=== PATIENT | female | born 1930 | race Caucasian/White ===

== ENCOUNTER → 2016-12-27 | Outpatient (CLI) | payer MEDICARE, OTHER | END | disposition home or self-care (01) | LOC: GMA 15:04 | PROVIDERS: ATTEND Nurse Practitioner Acute Care | DX: R30.0 Dysuria (principal) ==

== ENCOUNTER 2017-02-24 13:53 | Emergency (ER) | payer MEDICARE, OTHER ==
[2017-02-24 14:13] VITALS: TEMP 97.5
--- NOTE | 2017-02-24 14:56 | ED.PDOC ---
History of Present Illness - General Chief Complaint: Headache Stated Complaint: headache Time Seen by Provider: 02/24/17 14:43 Source: patient, RN notes reviewed, Vital Signs reviewed, family - Daughters Exam Limitations: no limitations - History of Present Illness Initial Comments: Patient is an 86 y/o female who is brought in by her daughters due to a headache that started yesterday. It is a moderate headache, although her daughters state she said it felt like her head was going to blow up. She has a lot of sinus congestion and her upper teeth hurt. She denies any fever or chills. She threw up her lunch today. Timing/Duration: 24 hours, constant Quality: moderate, pressure, sharp Head Injury Location: frontal Recent Head Trauma: no recent headache/trauma Improving Factors: nothing Worsening Factors: nothing Associated Symptoms: fatigue, nausea/vomiting, nasal congestion, nasal drainage Allergies/Adverse Reactions: Allergies Cephalexin [From Keflex] Allergy (Severe, Verified 02/24/17 14:13) Vomitting Levofloxacin [From Levaquin] Allergy (Severe, Verified 02/24/17 14:13) Vomitting Statins Allergy (Verified 02/24/17 14:13) coa inhibitors Adverse Reaction (Mild, Uncoded 02/24/17 14:13) Rash Home Medications: Ambulatory Orders Temazepam [Restoril] 30 mg PO HS 12/11/13 Aspirin [Baby Aspirin] 162 mg PO QD 09/17/14 Carvedilol [Coreg] 3.125 mg PO BID 11/16/14 Isosorbide Mononitrate [Imdur] 60 mg PO DAILY 11/16/14 Pantoprazole Sodium [Protonix] 40 mg PO DAILY 11/16/14 Simvastatin [Zocor] 20 mg PO DAILY 11/16/14 Ondansetron [Zofran Odt] 4 mg PO Q6H PRN #10 tab 08/17/15 Azilsartan Medoxomil-Chlorthal [Edarbyclor] 1 tab PO DAILY 03/03/16 ALPRAZolam [Xanax] 0.25 mg PO BID PRN 06/10/16 Hyoscyamine Sulfate [Levsin] 0.125 mg PO Q6HRS #20 tab 10/24/16 Sulfa/Trimeth 800/160 (Ds) Tab [Bactrim DS Tab] 1 ea PO BID #20 tab 02/24/17 Review of Systems - Review of Systems Constitutional: Denies: chills, fever EENTM: States: nose congestion Respiratory: States: no symptoms reported Cardiology: States: no symptoms reported Gastrointestinal/Abdominal: States: nausea, vomiting Genitourinary: States: no symptoms reported Musculoskeletal: States: no symptoms reported Skin: States: no symptoms reported Neurological: States: depressed, headache Endocrine: States: no symptoms reported Hematologic/Lymphatic: States: no symptoms reported All other Systems: Reviewed and Negative Past Medical History (General) - Patient Medical History Hx Seizures: No Hx Stroke: No Hx Dementia: No Hx Asthma: No Hx of COPD: No Hx Cardiac Disorders: Yes Hx Congestive Heart Failure: No Hx Pacemaker: No Hx Hypertension: Yes Hx Thyroid Disease: No Hx Diabetes: No Hx Gastroesophageal Reflux: No Hx Renal Disease: No Hx Cancer: Yes - colon Hx of HIV: No Hx Hepatitis C: No Hx MRSA: No - Vaccination History Hx Tetanus, Diphtheria Vaccination: No Hx Influenza Vaccination: Yes Hx Pneumococcal Vaccination: Yes - Social History Hx Tobacco Use: No Hx Chewing Tobacco Use: No Hx Alcohol Use: No Hx Substance Use: No Hx Substance Use Treatment: No Hx Depression: No Hx Physical Abuse: No Hx Emotional Abuse: No Hx Suspected Abuse: No - Activities of Daily Living Hospice Agency (if applicable):: None - Female History Patient is a Female of Child Bearing Age (10 -59 yrs old): No Patient : No Family Medical History - Family History Mother Family History: Unknown Living Status: Age at (years of age): 87 Cause of : pancreatic CA Hx Family Cancer: Yes - pancreas,and colon Physical Exam - Physical Exam General Appearance: Alert, No apparent distress Eyes, Ears, Nose, Throat Exam: PERRL/EOMI, normal ENT inspection, TMs normal, pharynx normal Neck: non-tender, full range of motion, supple, normal inspection Cardiovascular/Chest: regular rate, rhythm, no edema, no gallop, no murmur Respiratory: lungs clear, normal breath sounds, no respiratory distress, no accessory muscle use Gastrointestinal/Abdominal: normal bowel sounds, non tender, soft, no organomegaly Mental Status: alert, oriented x 3 [employer] parts Exam: normal speech, PERRL, hearing deficit (R), hearing deficit (L) Coordination/Gait: negative Romberg's sign Skin Exam: warm/dry, normal color Progress - Results/Orders Results/Orders: 02/24/17 14:05 Temperature 97.5 F L Pulse Rate [ 66 pulse ox] Respiratory 20 Rate Blood Pressure 143/67 [Left Arm] O2 Sat by Pulse 98 Oximetry - EKG/XRAY/CT CT: head & sinuses: normal brain for age, chronic maxillary sinusitis CT Ordered: Yes Departure - Departure Clinical Impression: Sinusitis Qualifiers: Sinusitis location: maxillary Chronicity: unspecified Qualifier Code: (J32.0) Chronic maxillary sinusitis Headache Qualifiers: Headache type: unspecified Headache chronicity pattern: acute headache Intractability: not intractable Qualifier Code: (R51) Headache Time of Disposition: 16:04 Disposition: Discharge to Home or Self Care Departure Forms: ED Discharge - Pt. Copy, Patient Portal Self Enrollment Diet: resume usual diet Prescriptions: Sulfa/Trimeth 800/160 (Ds) Tab [Bactrim DS Tab] 1 ea PO BID #20 tab Home Medications: Ambulatory Orders Temazepam [Restoril] 30 mg PO HS 12/11/13 Aspirin [Baby Aspirin] 162 mg PO QD 09/17/14 Carvedilol [Coreg] 3.125 mg PO BID 11/16/14 Isosorbide Mononitrate [Imdur] 60 mg PO DAILY 11/16/14 Pantoprazole Sodium [Protonix] 40 mg PO DAILY 11/16/14 Simvastatin [Zocor] 20 mg PO DAILY 11/16/14 Ondansetron [Zofran Odt] 4 mg PO Q6H PRN #10 tab 08/17/15 Azilsartan Medoxomil-Chlorthal [Edarbyclor] 1 tab PO DAILY 03/03/16 ALPRAZolam [Xanax] 0.25 mg PO BID PRN 06/10/16 Hyoscyamine Sulfate [Levsin] 0.125 mg PO Q6HRS #20 tab 10/24/16 Sulfa/Trimeth 800/160 (Ds) Tab [Bactrim DS Tab] 1 ea PO BID #20 tab 02/24/17 Additional Instructions: Over the counter: Flonase or Nasacort: Two sprays each nostril daily. NetiPot: Use twice daily. Tylenol for pain.
--- NOTE | 2017-02-24 15:27 | CT ---
PROCEDURE: Head HISTORY: New onset headache, sinus congestion Indication: Same as above Comparison: 06/10/2016 Technique: CT of the head was done without intravenous contrast was done in the orthogonal planes. This exam was performed according to our departmental dose-optimization program, which includes automated exposure control, adjustment of the mA and/or KV according to the patient's size and/or use of iterative reconstruction technique. FINDINGS: There is no intracranial hemorrhage, midline shift mass effect or acute focal infarct. There is prominence of the sylvian fissures and the cortical sulci reflecting age related volume loss. There is periventricular and deep white matter low attenuation, most likely related to small vessel white matter ischemic disease. Intracranial vascular calcifications are seen. If clinical concern exists regarding an acute ischemic/vascular pathology being responsible for patient's symptomatology, an MRI of the brain is more sensitive than the current study, in ruling out such a possibility. There is good muñoz/white matter differentiation. The ventricular system is normal. The mastoid air cells are unremarkable . The paranasal sinuses show changes of minimal right maxillary chronic sinusitis . There is no visualization of acute fractures involving the calvarium or the skull base. IMPRESSION: There is no acute intracranial abnormality. Age related and chronic involutional changes are seen. Electronically signed by: Herb Mckeon MD 02/24/2017 3:27 PM CDT
--- NOTE | 2017-02-24 15:31 | CT ---
PROCEDURE: Sinuses CLINICAL HISTORY: New onset headache, sinus congestion INDICATION: Same as above Comparison: CT of the head done on the same day . TECHNIQUE: CT of the paranasal sinuses was done without intravenous contrast, followed by orthogonal reconstructions. This exam was performed according to our departmental dose-optimization program, which includes automated exposure control, adjustment of the mA and/or KV according to the patient's size and/or use of iterative reconstruction technique. FINDINGS: There is presence of small retention cysts in the bilateral maxillary sinuses No air-fluid levels are seen in the maxillary sinuses. The ostiomeatal complexes are widely patent . The ethmoidal air cells are unremarkable . The frontal sinus is unremarkable . The sphenoid sinus is unremarkable . The bony nasal septum is is not significantly deviated . The bilateral sphenoethmoidal recesses are widely patent. There is no significant turbinate hypertrophy. There is no visualization of any nasopharyngeal mass. The visualized mastoid air cells are unremarkable . There are no soft tissue facial abscesses. There is presence of a 5 mm sebaceous cyst in the left anterior subcutaneous fat at the level of the left maxillary sinus. The visualized portions of the brain are unremarkable. The remaining soft tissues, bilateral orbital and visualized osseous structures are unremarkable IMPRESSION: There is presence of small retention cysts in the bilateral maxillary sinuses, suggestive of underlying changes of minimal chronic sinusitis . There is presence of a 5 mm sebaceous cyst in the left anterior subcutaneous fat at the level of the left maxillary sinus. Electronically signed by: Herb Mckeon MD 02/24/2017 3:30 PM CDT
[2017-02-24 16:51] VITALS: BP 142/64; O2SAT 96
== END 2017-02-24 16:10 | disposition home or self-care (01) ==
LOC: ER 13:53
DX: J32.0 Chronic maxillary sinusitis (principal); R51 Headache; I10 Essential (primary) hypertension; Z85.038 Personal history of other malignant neoplasm of large intestine; Z79.82 Long term (current) use of aspirin; Z79.899 Other long term (current) drug therapy; Z88.3 Allergy status to other anti-infective agents; Z88.8 Allergy status to other drugs, medicaments and biological substances

== ENCOUNTER → 2017-04-05 | Outpatient (CLI) | payer MEDICARE, OTHER | LOC: GMAB 11:15 | PROVIDERS: ATTEND Family Medicine | DX: I10 Essential (primary) hypertension (principal) ==

== ENCOUNTER → 2017-05-17 | Outpatient (CLI) | payer MEDICARE, OTHER ==
--- NOTE | 2017-05-17 10:46 | US ---
EXAM DESCRIPTION: Renal CLINICAL HISTORY: 87 years Female, RENAL CYST COMPARISON: CT examination 10/24/2016. FINDINGS: The right kidney is moderately atrophic at 7.7 x 4.4 x 4.2 cm. A 2.2 cm upper pole simple renal cyst is present with good through transmission and no significant solid component or hydronephrosis noted. Review of the CT examination showed slight septation or thickening of the cyst wall inferolaterally which is not appreciated on the current sonographic examination. For this reason continued follow-up with repeat imaging of the slightly smaller cyst is recommended in an additional six months. The left kidney is slightly larger at 8.1 x 4.5 x 4.6 cm. No cyst or mass or obstruction is noted. No hydronephrosis is seen. IMPRESSION: 1. Persistent 2.2 cm right renal cyst posteriorly involving the upper pole that is slightly smaller in size than previously seen. Because of slight thickening of the cyst wall inferior laterally on prior CT continued sonographic follow-up for longer term stability with repeat imaging in additional six months is recommended 2. Modestly atrophic right kidney and normal-appearing left kidney. Electronically signed by: Nish Whiting MD 05/17/2017 10:46 AM CDT
== END | disposition home or self-care (01) ==
LOC: US 08:28
PROVIDERS: ATTEND Urology
DX: N28.1 Cyst of kidney, acquired (principal)

== ENCOUNTER 2017-05-18 11:00 | Emergency (ER) | payer MEDICARE, OTHER ==
[2017-05-18] MEDS: SODIUM CHLORIDE 0.9% (FLUSH) 10 ML SYG IV PRN (11:15)
--- NOTE | 2017-05-18 12:05 | ED.PDOC ---
History of Present Illness - General Chief Complaint: Chest Pain/SC Stated Complaint: CHEST PAIN Time Seen by Provider: 05/18/17 11:55 Source: patient Exam Limitations: no limitations - History of Present Illness Initial Comments: PT IS AN 87 YO FEMALE WHO REPORTS ONSET OF CHEST PAIN LAST NIGHT AT 930. PT TOOK 2 SL NTG WHICH DID NOT ALLEVIATE PAIN IT USUALLY DOES. PT REPORTS THAT PAIN RESOLVED AT ABOUT 3 AM LAST NIGHT. PT CALLED HER [facility]LE PRINTER TO MAKE AN APPT THIS AM AND WAS INSTRUCTED TO COME TO THE ED TO BE EVALUATED. PT DENIES PAIN CURRENTLY. PT REPORTS THAT HER PCP, DR. SANCHEZ INCREASED HER NORVASC FROM 5MG TO 10MG YESTERDAY. PT REPORT THAT SHE ONLY TOOK 5MG THIS AM BECAUSE SHE BELIEVES THAT THIS MAY HAVE CONTRIBUTED TO THE CHEST PAIN. Timing/Duration: resolved prior to arrival, gone now Severity/Quality: moderate Location: substernal Chest Pain Radiation: no radiation Activities at Onset: none Prior Chest Pain/Cardiac Workup: heart attack, other - CABG Improving Factors: nothing Nitro Today/Relief: 0.4 mg x 2 - LAST NIGHT Aspirin Treatment Today: provided at home Associated Symptoms: denies symptoms Allergies/Adverse Reactions: Allergies Cephalexin [From Keflex] Allergy (Severe, Verified 02/24/17 14:13) Vomitting Levofloxacin [From Levaquin] Allergy (Severe, Verified 02/24/17 14:13) Vomitting Statins Allergy (Verified 02/24/17 14:13) coa inhibitors Adverse Reaction (Mild, Uncoded 02/24/17 14:13) Rash Home Medications: Ambulatory Orders Temazepam [Restoril] 30 mg PO HS 12/11/13 Aspirin [Baby Aspirin] 162 mg PO QD 09/17/14 Carvedilol [Coreg] 3.125 mg PO BID 11/16/14 Isosorbide Mononitrate [Imdur] 60 mg PO DAILY 11/16/14 Pantoprazole Tablet [Protonix] 40 mg PO DAILY 11/16/14 Simvastatin [Zocor] 20 mg PO DAILY 11/16/14 Ondansetron [Zofran Odt] 4 mg PO Q6H PRN #10 tab 08/17/15 Azilsartan Medoxomil-Chlorthal [Edarbyclor] 1 tab PO DAILY 03/03/16 ALPRAZolam [Xanax] 0.25 mg PO BID PRN 06/10/16 Hyoscyamine Sulfate [Levsin] 0.125 mg PO Q6HRS #20 tab 10/24/16 Sulfa/Trimeth 800/160 (Ds) Tab [Bactrim DS Tab] 1 ea PO BID #20 tab 02/24/17 Review of Systems - Review of Systems Constitutional: Denies: chills, fever EENTM: Denies: nose congestion, throat pain Respiratory: Denies: cough, short of breath Cardiology: States: see HPI, chest pain. 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 Hx Congestive Heart Failure: No Hx Pacemaker: No Hx Hypertension: Yes Hx Thyroid Disease: No Hx Diabetes: No Hx Gastroesophageal Reflux: No Hx Renal Disease: No Hx Cancer: Yes - colon Hx of HIV: No Hx Hepatitis C: No Hx MRSA: No - Vaccination History Hx Tetanus, Diphtheria Vaccination: No Hx Influenza Vaccination: Yes Hx Pneumococcal Vaccination: Yes - Social History Hx Tobacco Use: No Hx Chewing Tobacco Use: No Hx Alcohol Use: No Hx Substance Use: No Hx Substance Use Treatment: No Hx Depression: No Hx Physical Abuse: No Hx Emotional Abuse: No Hx Suspected Abuse: No - Female History Patient : No Family Medical History - Family History Mother Family History: Unknown Living Status: Age at (years of age): 87 Cause of : pancreatic CA Hx Family Cancer: Yes - pancreas,and colon Physical Exam - Physical Exam General Appearance: Alert, Comfortable, No apparent distress, Well Groomed, Well Hydrated, Well Nourished Eyes, Ears, Nose, Throat Exam: normal ENT inspection Neck: full range of motion, normal inspection Respiratory: lungs clear, normal breath sounds, no respiratory distress Cardiovascular/Chest: regular rate, rhythm, no edema, no murmur Gastrointestinal/Abdominal: non tender, soft Extremity: non-tender, normal inspection Neurologic: alert, normal mood/affect, oriented x 3 Skin Exam: normal color, warm/dry Progress - Progress Progress: 05/18/17 13:51 PT CONTINUES TO REST COMFORTABLY, NO CHEST PAIN REPORTED. LABS AND DIAGNOSTIC STUDIES DISCUSSED. WILL PLAN TO DC HOME AND RECOMMEND FOLLOW UP WITH [facility] [employer] AND PCP. - Results/Orders Results/Orders: 05/18/17 11:59 IV Care:Saline Lock per Protoc QSHIFT Telemetry .ONCE Sodium Chloride 0.9% (Flush) [Saline Flush Syringe] 10 ml IV PRN PRN EKG Assessment ONCE EKG Stat Pulse Ox Stat Pulse Oximetry Assessment DAILY Laboratory Results - last 24 hr 05/18/17 11:59 WBC 6.0 RBC 4.23 Hgb 13.2 Hct 39.2 MCV 92.5 MCH 31.3 H MCHC 33.8 RDW 12.9 Plt Count 200 MPV 9.6 Absolute Neuts (auto) 3.90 Absolute Lymphs (auto) 1.50 Absolute Monos (auto) 0.40 Absolute Eos (auto) 0.10 Absolute Basos (auto) 0.10 Neutrophils % 65.5 Lymphocytes % 24.4 Monocytes % 7.0 Eosinophils % 2.2 Basophils % 0.9 PT 10.9 INR 0.960 PTT (SP) 25.9 Sodium 133 L Potassium 3.9 Chloride 97 L Carbon Dioxide 25 Anion Gap 14.9 BUN 19 H Creatinine 0.93 BUN/Creatinine Ratio 20.4 H Random Glucose 111 H Serum Osmolality 269.3 L Calcium 9.5 Magnesium 1.5 L Creatine Kinase 67 CK-MB (CK-2) 2.6 CK-MB (CK-2) % Not Reportable Troponin I < 0.02 B-Natriuretic Peptide 184.0 H - EKG/XRAY/CT EKG: Sinus - @75BPM, NL INTERVALS, NL AXIS, no ST T wave changes - WHEN COMPARED TO PREVIOUS FROM 09/18/16 XRAY: chest - NORMAL PER RAD Departure - Departure Clinical Impression: Chest pain of unknown etiology Time of Disposition: 13:52 Disposition: Discharge to Home or Self Care Condition: Good Departure Forms: ED Discharge - Pt. Copy, Patient Portal Self Enrollment Referrals: Russell Sanchez MD [Primary Care Provider] - 1-2 Weeks Home Medications: Ambulatory Orders Temazepam [Restoril] 30 mg PO HS 12/11/13 Aspirin [Baby Aspirin] 162 mg PO QD 09/17/14 Carvedilol [Coreg] 3.125 mg PO BID 11/16/14 Isosorbide Mononitrate [Imdur] 60 mg PO DAILY 11/16/14 Pantoprazole Tablet [Protonix] 40 mg PO DAILY 11/16/14 Simvastatin [Zocor] 20 mg PO DAILY 11/16/14 Ondansetron [Zofran Odt] 4 mg PO Q6H PRN #10 tab 08/17/15 Azilsartan Medoxomil-Chlorthal [Edarbyclor] 1 tab PO DAILY 03/03/16 ALPRAZolam [Xanax] 0.25 mg PO BID PRN 06/10/16 Hyoscyamine Sulfate [Levsin] 0.125 mg PO Q6HRS #20 tab 10/24/16 Sulfa/Trimeth 800/160 (Ds) Tab [Bactrim DS Tab] 1 ea PO BID #20 tab 02/24/17
[2017-05-18] MEDS: ASPIRIN TABLET 325 MG TAB PO ONE (12:41)
--- NOTE | 2017-05-18 12:43 | RAD ---
EXAM DESCRIPTION: Chest,1 View CLINICAL HISTORY: CHEST PAIN COMPARISON: September 18, 2016 IMPRESSION: Single AP portable upright view of the chest shows cardiac silhouette and pulmonary vasculature to be within normal limits. Sternotomy wires are noted. Mild calcifications of the thoracic aortic arch are seen. Lungs are normally aerated and clear. No obvious pleural effusion or pneumothorax is seen. Incidentally noted are several osseous bodies in the region of the right shoulder. Electronically signed by: Sreekanth Leon MD 05/18/2017 12:42 PM CDT
[2017-05-18 16:45] VITALS: BP 148/85; TEMP 97.9; O2SAT 95
== END 2017-05-18 14:05 | disposition home or self-care (01) ==
LOC: ER 11:00
DX: R07.9 Chest pain, unspecified (principal); I25.2 Old myocardial infarction; I10 Essential (primary) hypertension; Z85.89 Personal history of malignant neoplasm of other organs and systems; Z95.1 Presence of aortocoronary bypass graft; Z79.82 Long term (current) use of aspirin; Z79.899 Other long term (current) drug therapy; Z88.8 Allergy status to other drugs, medicaments and biological substances; Z88.3 Allergy status to other anti-infective agents

== ENCOUNTER → 2017-07-21 | Outpatient (CLI) | payer MEDICARE, OTHER | END | disposition home or self-care (01) | LOC: GMA 15:28 | PROVIDERS: ATTEND Nurse Practitioner Family | DX: N39.0 Urinary tract infection, site not specified (principal) ==

== ENCOUNTER 2017-08-25 08:26 | Emergency (ER) | payer MEDICARE, OTHER ==
[2017-08-25 08:38] VITALS: BP 157/68; TEMP 98.3; O2SAT 96
--- NOTE | 2017-08-25 08:51 | ED.PDOC ---
History of Present Illness - General Chief Complaint: General Stated Complaint: Concerned about chest pain early in the night Time Seen by Provider: 08/25/17 08:38 Source: patient Exam Limitations: no limitations - History of Present Illness Initial Comments: The patient is an 87-year-old female presenting to the emergency room secondary to 2 very brief episodes of chest pain that occurred last night at around 3 AM. Each episode lasted approximately one second. It was a sharp stabbing pulling pain to the left lateral lower rib cage area. It was present and then was gone. She did not have any persistent chest pain. No shortness of breath. No cough. No fever. She does have a cardiac history but is followed closely by cardiology and according to her recently had a nuclear stress test that was completely normal just 2 months ago. The patient is pleasant and cooperative. She is a little bit anxious. She is not eager to undergo any testing if there is a low likelihood of this being of cardiac origin. Timing/Duration: momentarily Severity: mild Improving Factors: nothing Worsening Factors: nothing Associated Symptoms: denies symptoms Allergies/Adverse Reactions: Allergies Cephalexin [From Keflex] Allergy (Severe, Verified 08/25/17 08:47) Vomitting Levofloxacin [From Levaquin] Allergy (Severe, Verified 08/25/17 08:47) Vomitting Statins Allergy (Verified 08/25/17 08:47) coa inhibitors Adverse Reaction (Mild, Uncoded 08/25/17 08:47) Rash Home Medications: Ambulatory Orders Temazepam [Restoril] 30 mg PO HS 12/11/13 Aspirin [Baby Aspirin] 162 mg PO QD 09/17/14 Carvedilol [Coreg] 3.125 mg PO BID 11/16/14 Isosorbide Mononitrate [Imdur] 60 mg PO DAILY 11/16/14 Pantoprazole Tablet [Protonix] 40 mg PO DAILY 11/16/14 Simvastatin [Zocor] 20 mg PO DAILY 11/16/14 Azilsartan Medoxomil-Chlorthal [Edarbyclor] 1 tab PO DAILY 03/03/16 ALPRAZolam [Xanax] 0.25 mg PO BID PRN 06/10/16 Hyoscyamine Sulfate [Levsin] 0.125 mg PO Q6HRS #20 tab 10/24/16 Review of Systems - Review of Systems Constitutional: States: no symptoms reported EENTM: States: no symptoms reported Respiratory: States: no symptoms reported Cardiology: States: chest pain Gastrointestinal/Abdominal: States: no symptoms reported Genitourinary: States: no symptoms reported Musculoskeletal: States: no symptoms reported Skin: States: no symptoms reported Neurological: States: no symptoms reported Endocrine: States: no symptoms reported All other Systems: No Change from Baseline Past Medical History (General) - Patient Medical History Hx Seizures: No Hx Stroke: No Hx Dementia: No Hx Asthma: No Hx of COPD: No 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 Hx Congestive Heart Failure: No Hx Pacemaker: No Hx Hypertension: Yes Hx Thyroid Disease: No Hx Diabetes: No Hx Gastroesophageal Reflux: No Hx Renal Disease: No Hx Cancer: Yes - colon Hx of HIV: No Hx Hepatitis C: No Hx MRSA: No Surgical History: appendectomy, cholecystectomy, colectomy, coronary bypass surgery - Vaccination History Hx Tetanus, Diphtheria Vaccination: No Hx Influenza Vaccination: Yes Hx Pneumococcal Vaccination: Yes - Social History Hx Tobacco Use: No Hx Chewing Tobacco Use: No Hx Alcohol Use: No Hx Substance Use: No Hx Substance Use Treatment: No Hx Depression: No Hx Physical Abuse: No Hx Emotional Abuse: No Hx Suspected Abuse: No - Female History Patient is a Female of Child Bearing Age (10 -59 yrs old): No Patient : No Family Medical History - Family History Mother Family History: Unknown Living Status: Age at (years of age): 87 Cause of : pancreatic CA Hx Family Cancer: Yes - pancreas,and colon Physical Exam - Physical Exam General Appearance: Alert, Anxious, Comfortable, No apparent distress Eye Exam: bilateral normal Ears, Nose, Throat: normal ENT inspection, normal pharynx, other - ild hearing decreased bilaterally Neck: full range of motion, supple, normal inspection Respiratory: lungs clear, normal breath sounds, no respiratory distress, no accessory muscle use Cardiovascular/Chest: normal peripheral pulses, regular rate, rhythm, no edema Peripheral Pulses: radial,right: 2+, radial,left: 2+, dorsalis pedis,right: 2+, dorsalis pedis,left: 2+ Gastrointestinal/Abdominal: non tender, soft, no pulsatile mass Rectal Exam: deferred Back Exam: normal inspection, no CVA tenderness, no vertebral tenderness Extremity: normal range of motion, non-tender, normal inspection, no pedal edema , normal capillary refill Neurologic: manager safe II-XII nml as tested, alert, normal mood/affect - mildly anxious , oriented x 3 Skin Exam: normal color Comments: Vital Signs - 24 hr 08/25/17 08:33 Temperature 98.3 F Pulse Rate [ 71 Left Radial] Respiratory 18 Rate Blood Pressure 157/68 [Left Arm] O2 Sat by Pulse 96 Oximetry Progress - Progress Progress: 08/25/17 08:51 the patient is an 87-year-old female presenting with left lateral sharp lower chest pain in the middle of the night last night that was very brief. Symptoms are most consistent with a small amount of pleurisy. Given the fact that she just recently had a nuclear scan and she is followed closely with cardiology, it is unlikely that this is of cardiac origin. The patient does not wish to have additional testing done at this time. She does understand that she is to return here if any new symptoms develop. She has agreed to that. she should follow-up with her primary care doctor early next week. ER warnings were given. Departure - Departure Clinical Impression: Pleurisy Disposition: Discharge to Home or Self Care Condition: Fair Departure Forms: ED Discharge - Pt. Copy, Patient Portal Self Enrollment Instructions: DI for Pleurisy Diet: regular diet Activity: increase activity as tolerated Referrals: Russell Sanchez MD [Primary Care Provider] - 1-5 Days Home Medications: Ambulatory Orders Temazepam [Restoril] 30 mg PO HS 12/11/13 Aspirin [Baby Aspirin] 162 mg PO QD 09/17/14 Carvedilol [Coreg] 3.125 mg PO BID 11/16/14 Isosorbide Mononitrate [Imdur] 60 mg PO DAILY 11/16/14 Pantoprazole Tablet [Protonix] 40 mg PO DAILY 11/16/14 Simvastatin [Zocor] 20 mg PO DAILY 11/16/14 Azilsartan Medoxomil-Chlorthal [Edarbyclor] 1 tab PO DAILY 03/03/16 ALPRAZolam [Xanax] 0.25 mg PO BID PRN 06/10/16 Hyoscyamine Sulfate [Levsin] 0.125 mg PO Q6HRS #20 tab 10/24/16 Additional Instructions: the patient is an 87-year-old female presenting with left lateral sharp lower chest pain in the middle of the night last night that was very brief. Symptoms are most consistent with a small amount of pleurisy. Given the fact that she just recently had a nuclear scan and she is followed closely with cardiology, it is unlikely that this is of cardiac origin. The patient does not wish to have additional testing done at this time. She does understand that she is to return here if any new symptoms develop. She has agreed to that. she should follow-up with her primary care doctor early next week. ER warnings were given.
== END 2017-08-25 09:01 | disposition home or self-care (01) ==
LOC: ER 08:26
DX: R09.1 Pleurisy (principal); I25.2 Old myocardial infarction; I10 Essential (primary) hypertension; Z79.82 Long term (current) use of aspirin; Z95.1 Presence of aortocoronary bypass graft; Z88.8 Allergy status to other drugs, medicaments and biological substances; Z85.038 Personal history of other malignant neoplasm of large intestine

== ENCOUNTER → 2017-09-04 | Outpatient (CLI) | payer MEDICARE, OTHER | END | disposition home or self-care (01) | LOC: GMAB 17:11 | PROVIDERS: ATTEND Family Medicine | DX: G47.62 Sleep related leg cramps (principal) ==

== ENCOUNTER 2017-09-25 19:08 | Emergency (ER) | payer MEDICARE, OTHER ==
[2017-09-25 19:28] VITALS: TEMP 98.2; O2SAT 99
--- NOTE | 2017-09-25 20:24 | RAD ---
EXAM DESCRIPTION: Chest,2 Views CLINICAL HISTORY: left anterior chest pain COMPARISON: 05/18/2017 FINDINGS: Two views of the chest are submitted. Cardiac silhouette is within normal limits. There is no focal parenchymal or pleural disease. Visualized osseous structures are within normal limits. There is no significant pulmonary vascular engorgement. IMPRESSION: No evidence of acute cardiopulmonary disease. Electronically signed by: David Acosta 09/25/2017 8:23 PM [facility]
[2017-09-25] MEDS ORDERED: POTASSIUM CHLORIDE ELIXIR 20 MEQ/15 ML UD PO ONE (20:44)
--- NOTE | 2017-09-25 20:48 | ED.PDOC ---
History of Present Illness - General Chief Complaint: Cardiovascular Problem Stated Complaint: chest pain Time Seen by Provider: 09/25/17 19:11 Source: patient Exam Limitations: no limitations - History of Present Illness Initial Comments: the patient is an 87-year-old female presenting to the emergency room secondary to recurrent intermittent chest pain for the last several months. The chest pain can last anywhere from 1-2 seconds to 3 or 4 minutes. She reports that it really never occurs when she is up and walking around. It usually occurs when she is sitting down and doing something at the table or chair. It does not come on with anxiety. It does not hurt her to take a deep breath. The pain is fairly reproducible when I press on her left pectoralis muscle. Pain is primarily at the middle to distal thirds. The patient had a nuclear scan apparently back in May that was reassuring. She sees a pediatric cardiologist in [place]. The patient is quite anxious. She reported having some chest pains off and on since lunch today. No real shortness of breath. No palpitations. No diaphoresis. It is not a pressure type pain. I did actually see her here one month ago for a similar episode with a similar conclusion. It was uncertain at that time if it was musculoskeletal or pleuritic in origin. Today it appears to be more musculoskeletal. The pattern and history along with the lab work EKG and chest x-ray do not support a cardiac origin for this pain. Timing/Duration: unsure Severity: moderate Improving Factors: nothing Worsening Factors: movement Associated Symptoms: chest pain Allergies/Adverse Reactions: Allergies Cephalexin [From Keflex] Allergy (Severe, Verified 08/25/17 08:47) Vomitting Levofloxacin [From Levaquin] Allergy (Severe, Verified 09/25/17 19:28) Vomitting Statins Allergy (Verified 08/25/17 08:47) Sulfamethoxazole w/Trimethoprim [From Bactrim] Allergy (Verified 09/25/17 19:28) coa inhibitors Adverse Reaction (Mild, Uncoded 08/25/17 08:47) Rash Home Medications: Ambulatory Orders Temazepam [Restoril] 30 mg PO HS 12/11/13 Aspirin [Baby Aspirin] 162 mg PO QD 09/17/14 Carvedilol [Coreg] 3.125 mg PO BID 11/16/14 Isosorbide Mononitrate [Imdur] 60 mg PO DAILY 11/16/14 Pantoprazole Tablet [Protonix] 40 mg PO DAILY 11/16/14 Simvastatin [Zocor] 20 mg PO DAILY 11/16/14 Azilsartan Medoxomil-Chlorthal [Edarbyclor] 1 tab PO DAILY 03/03/16 ALPRAZolam [Xanax] 0.25 mg PO BID PRN 06/10/16 Hyoscyamine Sulfate [Levsin] 0.125 mg PO Q6HRS #20 tab 10/24/16 Magnesium Oxide 400 mg PO DAILY #30 cap 09/25/17 Potassium Chloride [Micro-K] 10 meq PO DAILY #30 cap 09/25/17 Review of Systems - Review of Systems Constitutional: States: no symptoms reported EENTM: States: no symptoms reported Respiratory: States: no symptoms reported Cardiology: States: chest pain Gastrointestinal/Abdominal: States: no symptoms reported Genitourinary: States: no symptoms reported Musculoskeletal: States: see HPI Skin: States: no symptoms reported Neurological: States: no symptoms reported Endocrine: States: no symptoms reported All other Systems: No Change from Baseline Past Medical History (General) - Patient Medical History Hx Seizures: No Hx Stroke: No Hx Dementia: No Hx Asthma: No Hx of COPD: No Hx Cardiac Disorders: Yes - [place] 2006 AND CABG Hx Congestive Heart Failure: No Hx Pacemaker: No Hx Hypertension: Yes Hx Thyroid Disease: No Hx Diabetes: No Hx Gastroesophageal Reflux: No Hx Renal Disease: No Hx Cancer: Yes - colon Hx of HIV: No Hx Hepatitis C: No Hx MRSA: No Surgical History: cholecystectomy, coronary bypass surgery - Vaccination History Hx Tetanus, Diphtheria Vaccination: No Hx Influenza Vaccination: Yes Hx Pneumococcal Vaccination: Yes - Social History Hx Tobacco Use: No Hx Chewing Tobacco Use: No Hx Alcohol Use: No Hx Substance Use: No Hx Substance Use Treatment: No Hx Depression: No Hx Physical Abuse: No Hx Emotional Abuse: No Hx Suspected Abuse: No - Female History Patient : No Family Medical History - Family History Mother Family History: Unknown Living Status: Age at (years of age): 87 Cause of : pancreatic CA Hx Family Cancer: Yes - pancreas,and colon Physical Exam - Physical Exam General Appearance: Alert, Anxious, No apparent distress Eye Exam: bilateral normal Ears, Nose, Throat: hearing grossly normal, normal ENT inspection, normal pharynx Neck: full range of motion, supple, normal inspection Respiratory: lungs clear, normal breath sounds, no respiratory distress, no accessory muscle use, other - chest wall is tender in the pattern of the left pectoralis major muscle. Cardiovascular/Chest: normal peripheral pulses, regular rate, rhythm, no edema Peripheral Pulses: radial,right: 2+, radial,left: 2+, dorsalis pedis,right: 2+, dorsalis pedis,left: 2+ Gastrointestinal/Abdominal: non tender, soft Rectal Exam: deferred Back Exam: normal inspection, no CVA tenderness, no vertebral tenderness Extremity: normal range of motion, non-tender, normal inspection, no pedal edema , normal capillary refill Neurologic: enroller II-XII nml as tested, alert, normal mood/affect, oriented x 3 Skin Exam: normal color Comments: Vital Signs - 24 hr 09/25/17 09/25/17 09/25/17 19:11 19:23 20:27 Temperature 98.2 F Pulse Rate 76 Pulse Rate [ 74 76 56 L monitor] Respiratory 18 18 Rate Blood Pressure 166/70 137/57 [Left Arm] O2 Sat by Pulse 99 99 Oximetry Progress - Progress Progress: 09/25/17 20:50 the patient's a 87-year-old female presenting to the emergency room secondary to left-sided chest pain that appears to correlate with pectoralis pain. the patient may benefit from physical therapy for strengthening of the muscles in this region to reduce strain. oral anti-inflammatory such as ibuprofen or Aleve may also help some. Topical heat may help. Additionally the patient does have some mildly to moderately low potassium and magnesium levels which may be contributing to muscle spasm. The patient is going to be placed on magnesium oxide 400 mg by mouth daily and potassium chloride tablets 10 mEq by mouth daily. She was given a dose of each here tonight. She does need to have levels rechecked in 1-2 weeks with her primary care doctor. ER warnings were given for any significant worsening. She should keep her follow- up with her pediatric cardiologist in October. if levels remain low then consideration should be given to discontinuation of the chlorthalidone. 09/25/17 20:53 - Results/Orders Results/Orders: 09/25/17 19:32 Telemetry .CONTINUOUS 09/25/17 19:45 EKG STAT 09/26/17 20:45 Magnesium Oxide [Mag-Ox Tab] 400 mg PO ONCE ONE Laboratory Results - last 24 hr 09/25/17 09/25/17 09/25/17 19:50 19:50 19:50 WBC 8.8 RBC 4.00 L Hgb 12.9 Hct 37.3 MCV 93.3 MCH 32.2 H MCHC 34.5 RDW 13.2 Plt Count 233 MPV 8.9 Absolute Neuts (auto) 6.60 Absolute Lymphs (auto) 1.50 Absolute Monos (auto) 0.50 Absolute Eos (auto) 0.10 Absolute Basos (auto) 0.10 Neutrophils % 74.9 Lymphocytes % 16.8 L Monocytes % 6.2 Eosinophils % 1.5 Basophils % 0.6 PT 10.4 INR 0.920 PTT (SP) 26.0 Sodium 132 L Potassium 3.3 L Chloride 96 L Carbon Dioxide 28 Anion Gap 11.3 L BUN 23 H Creatinine 0.90 BUN/Creatinine Ratio 25.6 H Random Glucose 107 H Serum Osmolality 268.7 L Calcium 9.0 Magnesium 1.4 L Total Bilirubin 0.2 AST 24 ALT 23 Alkaline Phosphatase 96 Creatine Kinase 45 CK-MB (CK-2) 2.1 CK-MB (CK-2) % Not Reportable Troponin I < 0.02 B-Natriuretic Peptide 353.0 H* Serum Total Protein 7.5 Albumin 3.7 Globulin 3.8 H Albumin/Globulin Ratio 1.0 L EKG shows a normal sinus rhythm at 62 bpm. There is a mild right axis deviation which is old. There is poor R-wave progression which is old. EKG is consistent with EKG from [address] segment changes concerning for ischemia. chest x-ray shows no acute pathology. No cardiomegaly. No fluid overload. No pneumonia. Departure - Departure Clinical Impression: Hypokalemia, Hypomagnesemia Pectoralis muscle strain Qualifiers: Encounter type: initial encounter Qualified Code(s): S29.011A - Strain of muscle and tendon of front wall of thorax, initial encounter Disposition: Discharge to Home or Self Care Departure Forms: ED Discharge - Pt. Copy, Patient Portal Self Enrollment Referrals: Russell Sanchez MD [Primary Care Provider] - 1-2 Weeks Prescriptions: Magnesium Oxide 400 mg PO DAILY #30 cap Potassium Chloride [Micro-K] 10 meq PO DAILY #30 cap Home Medications: Ambulatory Orders Temazepam [Restoril] 30 mg PO HS 12/11/13 Aspirin [Baby Aspirin] 162 mg PO QD 09/17/14 Carvedilol [Coreg] 3.125 mg PO BID 11/16/14 Isosorbide Mononitrate [Imdur] 60 mg PO DAILY 11/16/14 Pantoprazole Tablet [Protonix] 40 mg PO DAILY 11/16/14 Simvastatin [Zocor] 20 mg PO DAILY 11/16/14 Azilsartan Medoxomil-Chlorthal [Edarbyclor] 1 tab PO DAILY 03/03/16 ALPRAZolam [Xanax] 0.25 mg PO BID PRN 06/10/16 Hyoscyamine Sulfate [Levsin] 0.125 mg PO Q6HRS #20 tab 10/24/16 Magnesium Oxide 400 mg PO DAILY #30 cap 09/25/17 Potassium Chloride [Micro-K] 10 meq PO DAILY #30 cap 09/25/17 Additional Instructions: the patient's a 87-year-old female presenting to the emergency room secondary to left-sided chest pain that appears to correlate with pectoralis pain. the patient may benefit from physical therapy for strengthening of the muscles in this region to reduce strain. oral anti-inflammatory such as ibuprofen or Aleve may also help some. Topical heat may help. Additionally the patient does have some mildly to moderately low potassium and magnesium levels which may be contributing to muscle spasm. The patient is going to be placed on magnesium oxide 400 mg by mouth daily and potassium chloride tablets 10 mEq by mouth daily. She was given a dose of each here tonight. She does need to have levels rechecked in 1-2 weeks with her primary care doctor. ER warnings were given for any significant worsening. She should keep her follow- up with her pediatric cardiologist in October. if levels remain low then consideration should be given to discontinuation of the chlorthalidone.
[2017-09-25] MEDS ORDERED: MAGNESIUM OXIDE 400 MG TAB ONE (21:04)
[2017-09-25 21:11] VITALS: BP 131/61
[2017-09-26] MEDS ORDERED: MAGNESIUM OXIDE 400 MG TAB PO ONE (20:45)
== END 2017-09-25 21:11 | disposition home or self-care (01) ==
LOC: ER 19:08
DX: S29.011A Strain of muscle and tendon of front wall of thorax, initial encounter (principal); E87.6 Hypokalemia; E83.42 Hypomagnesemia; I25.2 Old myocardial infarction; I10 Essential (primary) hypertension; Z85.038 Personal history of other malignant neoplasm of large intestine; Z95.1 Presence of aortocoronary bypass graft; Z79.82 Long term (current) use of aspirin; Z79.899 Other long term (current) drug therapy

== ENCOUNTER 2017-12-03 09:24 | Emergency (ER) | payer MEDICARE, OTHER ==
[2017-12-03 09:49] VITALS: TEMP 98.5
--- NOTE | 2017-12-03 10:27 | ED.PDOC ---
History of Present Illness - General Chief Complaint: Abdominal Pain Stated Complaint: abdominal pain Time Seen by Provider: 12/03/17 10:27 Information Source: patient Exam Limitations: no limitations - History of Present Illness Initial Comments: Mandi Hoang 87 y/o female came to ER with dull ache intermittent left lower quadrant the last 4 days;No dysuria no hematuria,no constipation.Had diarrhea 2 days ago but stopped and better;has history of colon CA and in remission had follow up colonoscopy which was normal.No fever or chills Abdominal Pain Onset Location: LLQ Pain Radiation: no radiation Quality: moderate, dull, intermittent Timing/Duration: other - 4 days Associated Symptoms: denies symptoms Review of Systems - Review of Systems Constitutional: States: no symptoms reported EENTM: States: no symptoms reported Respiratory: States: no symptoms reported Cardiology: States: no symptoms reported Gastrointestinal/Abdominal: States: see HPI Genitourinary: States: no symptoms reported All other Systems: Reviewed and Negative, No Change from Baseline Past Medical History (General) - Patient Medical History Hx Seizures: No Hx Stroke: No Hx Dementia: No Hx Asthma: No Hx of COPD: No Hx Cardiac Disorders: Yes - [place] 2006 AND CABG Hx Congestive Heart Failure: No Hx Pacemaker: No Hx Hypertension: Yes Hx Thyroid Disease: No Hx Diabetes: No Hx Gastroesophageal Reflux: No Hx Renal Disease: No Hx Cancer: Yes - colon Hx of HIV: No Hx Hepatitis C: No Hx MRSA: No Surgical History: appendectomy, cholecystectomy, coronary bypass surgery, tonsillectomy, other - colon resection,hysterectomy - Vaccination History Hx Tetanus, Diphtheria Vaccination: No Hx Influenza Vaccination: Yes Hx Pneumococcal Vaccination: Yes - Social History Hx Tobacco Use: No Hx Chewing Tobacco Use: No Hx Alcohol Use: No Hx Substance Use: No Hx Substance Use Treatment: No Hx Depression: No Hx Physical Abuse: No Hx Emotional Abuse: No Hx Suspected Abuse: No - Activities of Daily Living Patient Lives Alone: No - family Grooming Ability: Independent Eating (Feeding) Ability: Independent Toileting Ability: Independent - Female History Patient : No Family Medical History - Family History Mother Family History: Unknown Living Status: Age at (years of age): 87 Cause of : pancreatic CA Hx Family Cancer: Yes - pancreas,and colon Physical Exam - Physical Exam General Appearance: Alert, Comfortable, No apparent distress Eyes, Ears, Nose, Throat Exam: PERRL/EOMI, normal ENT inspection Neck: non-tender, full range of motion, supple Respiratory: chest non-tender, lungs clear, normal breath sounds Cardiovascular/Chest: normal peripheral pulses, regular rate, rhythm, no murmur Peripheral Pulses: No deficit Gastrointestinal/Abdominal: non tender, soft, no organomegaly, tenderness - left lq no peritoneal signs Progress - Progress Progress: 12/03/17 10:51 Last Vital Signs Temp 98.5 F 12/03/17 09:35 Pulse 85 12/03/17 09:35 Resp 16 12/03/17 09:35 BP 125/83 12/03/17 09:35 Pulse Ox 95 12/03/17 09:35 - Results/Orders Results/Orders: Laboratory Tests 12/03/17 12/03/17 12/03/17 10:35 10:48 10:48 WBC 6.3 RBC 4.20 Hgb 13.3 Hct 39.6 MCV 94.3 MCH 31.7 H MCHC 33.7 RDW 13.5 Plt Count 246 MPV 9.2 Absolute Neuts (auto) 4.40 Absolute Lymphs (auto) 1.50 Absolute Monos (auto) 0.40 Absolute Eos (auto) 0.00 Absolute Basos (auto) 0.10 Neutrophils % 68.7 Lymphocytes % 22.9 Monocytes % 6.7 Eosinophils % 0.7 L Basophils % 1.0 Sodium 140 Potassium 3.4 L Chloride 104 Carbon Dioxide 26 Anion Gap 13.4 BUN 16 Creatinine 0.98 BUN/Creatinine Ratio 16.3 Random Glucose 130 H Serum Osmolality 282.3 Calcium 9.6 Total Bilirubin 0.7 AST 21 ALT 17 Alkaline Phosphatase 110 Serum Total Protein 8.3 H Albumin 3.8 Globulin 4.5 H Albumin/Globulin Ratio 0.8 L Lipase 52 H Urine Color Yellow Urine Appearance Clear Urine pH 5.5 Ur Specific [place] 1.015 Urine Protein Negative Urine Glucose (UA) Negative Urine Ketones Negative Urine Blood Negative Urine Nitrite Negative Urine Bilirubin Negative Urine Urobilinogen 0.2 Ur Leukocyte Esterase Trace H Urine RBC 0 Urine WBC 3-5 H Ur Epithelial Cells 1-3 Urine Bacteria Rare Departure - Departure Clinical Impression: Abdominal pain Qualifiers: Abdominal location: left lower quadrant Qualified Code(s): R10.32 - Left lower quadrant pain Diverticulitis Qualifiers: Diverticulitis site: large intestine Diverticulitis bleeding: without bleeding Diverticulitis complication: without perforation or abscess Qualified Code(s): K57.32 - Diverticulitis of large intestine without perforation or abscess without bleeding Time of Disposition: 12:51 Disposition: Discharge to Home or Self Care Departure Forms: ED Discharge - Pt. Copy, Patient Portal Self Enrollment Instructions: DI for Diverticulitis, Diverticulitis Diet: other - SOFT DIET UNTIL BETTER Referrals: Russell Sanchez MD [Primary Care Provider] - 1-2 Weeks Prescriptions: Amoxicillin [Amoxil] 500 mg PO TID #21 cap metroNIDAZOLE [Flagyl] 500 mg PO Q8H #21 tab Home Medications: Ambulatory Orders Temazepam [Restoril] 30 mg PO HS 12/11/13 Aspirin [Baby Aspirin] 162 mg PO QD 09/17/14 Carvedilol [Coreg] 3.125 mg PO BID 11/16/14 Isosorbide Mononitrate [Imdur] 60 mg PO DAILY 11/16/14 Pantoprazole Tablet [Protonix] 40 mg PO DAILY 11/16/14 Simvastatin [Zocor] 20 mg PO DAILY 11/16/14 Azilsartan Medoxomil-Chlorthal [Edarbyclor] 1 tab PO DAILY 03/03/16 ALPRAZolam [Xanax] 0.25 mg PO BID PRN 06/10/16 Hyoscyamine Sulfate [Levsin] 0.125 mg PO Q6HRS #20 tab 10/24/16 Magnesium Oxide 400 mg PO DAILY #30 cap 09/25/17 Potassium Chloride [Micro-K] 10 meq PO DAILY #30 cap 09/25/17 Amoxicillin [Amoxil] 500 mg PO TID #21 cap 12/03/17 metroNIDAZOLE [Flagyl] 500 mg PO Q8H #21 tab 12/03/17 Additional Instructions: Follow up with primary Md 12/05/2017 call for your appointment;Return to emergency room as needed
--- NOTE | 2017-12-03 12:57 | CT ---
EXAM DESCRIPTION: Abdoment/Pelvis w/o Contrast: Computed Tomography. CLINICAL HISTORY: pain. Left lower quadrant. History of colon cancer. COMPARISON: CT abdomen and pelvis 10/24/2016. TECHNIQUE: Spiral-axial scans 5.0 mm intervals through the abdomen and pelvis without oral or IV contrast. Coronal and sagittal 2.0 mm reconstructions. Axial - 1.25 mm reconstructions.Total Exam DLP: 350.79 mGy-cm. This exam was performed according to our departmental CT dose-optimization program which includes automated exposure control, adjustment of the mA and/or kV according to patient size and/or use of iterative reconstruction technique; to reduce radiation dose to as low as reasonably achievable (ALARA). FINDINGS: Colon: Numerous diverticula in the sigmoid colon. In the proximal sigmoid there is decreased definition of the serosa with increased fatty stranding and fascial thickening abutting the multiple pelvic ligament calcifications and luminal narrowing. No fluid collection or free air. Distal ileum to ascending colon anastomosis is unremarkable. Lung bases and pleura: Scarring in the inferior lingula. Minimal dependent atelectasis posterior bilateral lower lobes. No pleural effusion. Surgical hardware abutting the cardiac right and left ventricle. Liver, stomach, spleen, and adrenal glands: Stomach is unremarkable. Solid organs are negative. Pancreas, Gallbladder, and Ducts: Surgical clips in the gallbladder fossa with no fluid. Duct unremarkable, elongated pancreas but otherwise negative. Kidneys and Ureters: 2.3 cm cyst in the inferior posterior right kidney, with no calcification or septations. Stable size since the prior study. Minimal left cortical atrophy with vague calcification but no definite mass or stones. No hydronephrosis bilaterally or perinephric stranding. Mesentery: Stranding around the sigmoid colon diverticulitis as described. Aorta: Diffuse atherosclerotic calcification more notable from the mid abdominal aorta to the bifurcation with bilateral significant luminal narrowing of the proximal common iliac vessels. Small Bowel: Normal caliber with gas and fluid. Pelvic Organs: Multiple calcifications in the pelvic cavity. Calcification bilateral ligaments. Uterus and ovaries not seen. No fluid in the cul-de-sac. Spine and Bony Pelvis: Minimal levoscoliosis lumbar spine. Transitional vertebra is either 6th lumbar or lumbarized S1. More likely lumbarized S1 which is consistent with most inferior rib pair originating from T12. Bilateral SI joint hypertrophic changes in bilateral hip joint space loss and degenerative bone changes. Abdominal Wall/Back Soft Tissues: Protrusion of the midline abdomen superior to the umbilicus not containing bowel. Bilateral small fatty inguinal hernia not containing bowel. IMPRESSION: 1. Sigmoid diverticulosis and diverticulitis, without complications, not seen on the prior study October 2016. 2. Right renal cyst has not enlarged since the prior study with no wall thickening septations or calcifications. 3. Stable thoracic spondylosis. 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 CRITICAL COMMUNICATION: The critical value was discussed directly by phone with Dr. Blunt, at approximately 1220, on December 03, 2017. Electronically signed by: David Carrillo MD 12/03/2017 12:[address] [facility]
[2017-12-03 13:09] VITALS: BP 148/84; O2SAT 92
== END 2017-12-03 13:09 | disposition home or self-care (01) ==
LOC: ER 09:24
DX: K57.32 Diverticulitis of large intestine without perforation or abscess without bleeding (principal); I25.2 Old myocardial infarction; I10 Essential (primary) hypertension; Z95.1 Presence of aortocoronary bypass graft; Z85.038 Personal history of other malignant neoplasm of large intestine

== ENCOUNTER 2018-01-18 21:46 | Emergency (ER) | payer MEDICARE, OTHER ==
[2018-01-18] MEDS ORDERED: SODIUM CHLORIDE 0.9% (FLUSH) 10 ML SYG IV PRN (21:57)
--- NOTE | 2018-01-18 22:14 | ED.PDOC ---
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 The pain is cramping in nature, non-radiating, no exacerbating nor alleviating factors, has had previous episodes, and associated with mild nausea. She took a nitro SL and it did not go away. She then took a Tums a few hours later and it still did not go away. She then took another nitro SL and it did not go away. No other complaints. She was in the hospital in [place] one month ago and says she got a complete cardiac workup that was negative. Timing/Duration: other - 9 hours Severity: mild Improving Factors: nothing Worsening Factors: nothing Associated Symptoms: other - see HPI Allergies/Adverse Reactions: Allergies Cephalexin [From Keflex] Allergy (Severe, Verified 12/03/17 09:49) Vomitting Levofloxacin [From Levaquin] Allergy (Severe, Verified 12/03/17 09:49) Vomitting Statins Allergy (Verified 12/03/17 09:49) Sulfamethoxazole w/Trimethoprim [From Bactrim] Allergy (Verified 12/03/17 09:49) coa inhibitors Adverse Reaction (Mild, Uncoded 12/03/17 09:49) Rash Home Medications: Ambulatory Orders Temazepam [Restoril] 30 mg PO HS 12/11/13 Aspirin [Baby Aspirin] 162 mg PO QD 09/17/14 Carvedilol [Coreg] 3.125 mg PO BID 11/16/14 Isosorbide Mononitrate [Imdur] 60 mg PO DAILY 11/16/14 Pantoprazole Tablet [Protonix] 40 mg PO DAILY 11/16/14 Simvastatin [Zocor] 20 mg PO DAILY 11/16/14 Azilsartan Medoxomil-Chlorthal [Edarbyclor] 1 tab PO DAILY 03/03/16 ALPRAZolam [Xanax] 0.25 mg PO BID PRN 06/10/16 Hyoscyamine Sulfate [Levsin] 0.125 mg PO Q6HRS #20 tab 10/24/16 Magnesium Oxide 400 mg PO DAILY #30 cap 09/25/17 Potassium Chloride [Micro-K] 10 meq PO DAILY #30 cap 09/25/17 Amoxicillin [Amoxil] 500 mg PO TID #21 cap 12/03/17 metroNIDAZOLE [Flagyl] 500 mg PO Q8H #21 tab 12/03/17 Review of Systems - Review of Systems Constitutional: States: no symptoms reported EENTM: States: no symptoms reported Respiratory: States: no symptoms reported Cardiology: States: see HPI Gastrointestinal/Abdominal: States: no symptoms reported Genitourinary: States: no symptoms reported Musculoskeletal: States: no symptoms reported Skin: States: no symptoms reported Neurological: States: no symptoms reported Endocrine: States: no symptoms reported Hematologic/Lymphatic: States: no symptoms reported Past Medical History (General) - Patient Medical History Hx Seizures: No Hx Stroke: No Hx Dementia: No Hx Asthma: No Hx of COPD: No Hx Cardiac Disorders: Yes - [place] 2006 AND CABG Hx Congestive Heart Failure: No Hx Pacemaker: No Hx Hypertension: Yes Hx Thyroid Disease: No Hx Diabetes: No Hx Gastroesophageal Reflux: No Hx Renal Disease: No Hx Cancer: Yes - colon Hx of HIV: No Hx Hepatitis C: No Hx MRSA: No - Vaccination History Hx Tetanus, Diphtheria Vaccination: No Hx Influenza Vaccination: Yes Hx Pneumococcal Vaccination: Yes - Social History Hx Tobacco Use: No Hx Chewing Tobacco Use: No Hx Alcohol Use: No Hx Substance Use: No Hx Substance Use Treatment: No Hx Depression: No Hx Physical Abuse: No Hx Emotional Abuse: No Hx Suspected Abuse: No - Female History Patient : No Family Medical History - Family History Mother Family History: Unknown Living Status: Age at (years of age): 87 Cause of : pancreatic CA Hx Family Cancer: Yes - pancreas,and colon Physical Exam - Physical Exam General Appearance: Alert Eye Exam: bilateral normal Ears, Nose, Throat: normal ENT inspection Neck: non-tender, full range of motion, supple Respiratory: chest non-tender, lungs clear, normal breath sounds Cardiovascular/Chest: normal peripheral pulses, regular rate, rhythm, no edema Gastrointestinal/Abdominal: normal bowel sounds, non tender, soft Back Exam: normal inspection, no CVA tenderness Extremity: normal range of motion, non-tender, normal inspection Neurologic: division superintendent II-XII nml as tested, no motor/sensory deficits, alert Skin Exam: normal color Lymphatic: no adenopathy Progress - Progress Progress: 03/09/18 22:44 Laboratory Tests 01/18/18 22:10 WBC 9.1 RBC 4.11 L Hgb 13.2 Hct 39.2 MCV 95.3 MCH 32.1 H MCHC 33.7 RDW 14.7 H Plt Count 208 MPV 8.3 Absolute Neuts (auto) 5.20 Absolute Lymphs (auto) 2.90 Absolute Monos (auto) 0.70 Absolute Eos (auto) 0.30 Absolute Basos (auto) 0.10 Neutrophils % 57.0 Lymphocytes % 32.3 Monocytes % 7.2 Eosinophils % 2.8 Basophils % 0.7 PT 10.4 INR 0.920 PTT (SP) 25.5 Sodium 136 Potassium 3.9 Chloride 104 Carbon Dioxide 23 Anion Gap 12.9 BUN 30 H Creatinine 1.09 BUN/Creatinine Ratio 27.5 H Random Glucose 114 H Serum Osmolality 279.0 Calcium 9.8 Magnesium 1.6 L Total Bilirubin 0.6 Direct Bilirubin < 0.1 Indirect Bilirubin 0.5 AST 20 ALT 23 Alkaline Phosphatase 72 Creatine Kinase 55 CK-MB (CK-2) 2.8 CK-MB (CK-2) % Not Reportable Troponin I 0.02 B-Natriuretic Peptide 196.0 H Serum Total Protein 7.8 Albumin 3.6 Troponin negative. EKG read by me showed sinus tachycardia of [address] elevations nor T wave inversions or LBBB. Tachycardia resolved quickly. Chest pain resolved while in the E.D. Patient was given a GI cocktail and discharged symptom-free. Departure - Departure Clinical Impression: Chest pain Disposition: Discharge to Home or Self Care Condition: Good Departure Forms: ED Discharge - Pt. Copy, Patient Portal Self Enrollment Instructions: DI for Chest Pain Diet: resume usual diet Activity: increase activity as tolerated Referrals: Russell Sanchez MD [Primary Care Provider] - 1-2 Weeks Home Medications: Ambulatory Orders Temazepam [Restoril] 30 mg PO HS 12/11/13 Aspirin [Baby Aspirin] 162 mg PO QD 09/17/14 Carvedilol [Coreg] 3.125 mg PO BID 11/16/14 Isosorbide Mononitrate [Imdur] 60 mg PO DAILY 11/16/14 Pantoprazole Tablet [Protonix] 40 mg PO DAILY 11/16/14 Simvastatin [Zocor] 20 mg PO DAILY 11/16/14 Azilsartan Medoxomil-Chlorthal [Edarbyclor] 1 tab PO DAILY 03/03/16 ALPRAZolam [Xanax] 0.25 mg PO BID PRN 06/10/16 Hyoscyamine Sulfate [Levsin] 0.125 mg PO Q6HRS #20 tab 10/24/16 Magnesium Oxide 400 mg PO DAILY #30 cap 09/25/17 Potassium Chloride [Micro-K] 10 meq PO DAILY #30 cap 09/25/17 Amoxicillin [Amoxil] 500 mg PO TID #21 cap 12/03/17 metroNIDAZOLE [Flagyl] 500 mg PO Q8H #21 tab 12/03/17 Additional Instructions: Follow up with your regular physician on sunday. Return immediately to the E.R. if chest pain starts again.
[2018-01-18] MEDS: ASPIRIN TABLET 325 MG TAB PO ONE ×2 (22:16→22:19)
[2018-01-18] MEDS ORDERED: ASPIRIN (CHEWABLE) 81 MG TAB ONE (22:21)
[2018-01-18] MEDS: ASPIRIN (CHEWABLE) 81 MG TAB PO ONE ×2 (22:21→22:22)
--- NOTE | 2018-01-18 22:23 | RAD ---
EXAM DESCRIPTION: Chest,1 View CLINICAL HISTORY: chest pain COMPARISON: September 25, 2017 FINDINGS: Cardiac silhouette is within normal limits. Aorta is tortuous. EKG leads project over the chest. Patient is status post median sternotomy. There is no focal parenchymal or pleural disease. There is no acute osseous process visualized. IMPRESSION: No evidence of acute cardiopulmonary disease. Electronically signed by: Aki Senior MD 01/18/2018 10:22 PM [facility]
[2018-01-18] MEDS ORDERED: ALUM & MAG HYDROX-SIMETHICONE 30 ML, LIDOCAINE VISCOUS 2% 15 ML PO ONE ×2 (22:43)
[2018-01-18] MEDS ORDERED: LIDOCAINE HCL 2% (MOUTH-THROAT) 15 ML UD ONE (22:59)
[2018-01-18] MEDS ORDERED: ALUM & MAG HYDROX-SIMETHICONE 30 ML UD ONE (22:59)
[2018-01-18 23:05] VITALS: TEMP 98.5; O2SAT 97
[2018-01-18 23:25] VITALS: BP 135/85
== END 2018-01-18 23:25 | disposition home or self-care (01) ==
LOC: ER 21:46
DX: R07.9 Chest pain, unspecified (principal); I25.2 Old myocardial infarction; I10 Essential (primary) hypertension; Z95.1 Presence of aortocoronary bypass graft; Z79.82 Long term (current) use of aspirin